=== PATIENT | female | born 1975 | race Caucasian/White ===

== ENCOUNTER 2017-12-02 09:08 | Emergency (ER) | payer MEDICAID ==
[2017-12-02 09:26] VITALS: BP 147/97
[2017-12-02] MEDS ORDERED: LIDOCAINE TOPICAL 4% 50 ML BOTTLE MM STA (10:45)
--- NOTE | 2017-12-02 10:49 | ED Physician Documentation ---
History of Present Illness - Stated complaint Stated Complaint: BILAT EAR PX - Chief complaint Chief Complaint: Heent - Additonal information Additional information: hx from pt 42 female hx CF to ED with maria ines ear pain off and on for a month started with resp infection txed with ab and steroids by her manager relationship has a PMD appt tomorrow but the resp sx caused her anxiety to increase so to ED Review of Systems Constitutional: denies: Fever Ears: reports: Ear pain : denies: Now EGA (denies) PD PAST MEDICAL HISTORY - Past Medical History Past Medical History: Yes - Past Surgical History Past Surgical History: No - Present Medications Home Medications: Ambulatory Orders Medication Instructions Recorded Confirmed Albuterol 1 puffs PO PRN PRN 12/02/17 12/02/17 Calcium Carbonate/Vitamin D3 1 tab PO DAILY 12/02/17 12/02/17 [Calcium 500-Vit D3 200 Tablet] Diphenhydramine HCl [Allergy 1 tab PO DAILY 12/02/17 12/02/17 Medication] Guaifenesin [Tussin] 10 - 15 ml PO DAILY 12/02/17 12/02/17 Ibuprofen 2 - 3 tab PO Q4H 12/02/17 12/02/17 - Allergies Allergies/Adverse Reactions: Allergies Allergy/AdvReac Type Severity Reaction Status Date / Time No Known Drug Allergies Allergy Verified 12/02/17 10:52 - Social History Does the pt smoke?: No Smoking Status: Never smoker Does the pt drink ETOH?: No Does the pt have substance abuse?: No - Immunizations Immunizations are current?: Yes - POLST Patient has POLST: No PD ED PE NORMAL - Vitals Vital signs reviewed: Yes - General General: Alert and oriented X 3 - HEENT HEENT: PERRL. No: Ears normal (R AOM (red bulging dull) L benign) - Cardiac Cardiac: RRR - Respiratory Respiratory: No respiratory distress, Clear bilaterally Results - Vitals Vitals: Vital Signs - 24 hr 12/02/17 09:15 Temperature 36.4 C L Heart Rate 99 Respiratory 22 Rate Blood Pressure 147/97 H O2 Saturation 97 Oxygen O2 Source Room air PD MEDICAL DECISION MAKING - ED course ED course: pt declines decongestatnts 2/2 CF gave lido in ED for acute pain will rx amox Departure - Departure Disposition: 01 Home, Self Care Clinical Impression: Otitis media Qualifiers: Otitis media type: suppurative Chronicity: acute Laterality: right Recurrence: not specified as recurrent Spontaneous tympanic membrane rupture: without spontaneous rupture Qualified Code(s): H66.001 - Acute suppurative otitis media without spontaneous rupture of ear drum, right ear Condition: Good Instructions: ED Otitis Media Acute Adult Comments: Follow up with your PMD tomorrow
== END 2017-12-02 11:17 | disposition home or self-care (01) ==
LOC: ED 09:08
DX: H66.001 Acute suppurative otitis media without spontaneous rupture of ear drum, right ear (principal)
CPT/HCPCS: 99283

== ENCOUNTER 2017-12-03 08:00 | Outpatient (CLI) | payer MEDICAID ==
[2017-12-03 18:23] LABS: THYROID STIMULATING HORMONE 1.52 uIU/mL (0.34-5.60)
[2017-12-03 18:34] LABS: ALBUMIN 3.4 g/dL (3.2-5.5); ALBUMIN/GLOBULIN RATIO 0.9 (1.0-2.2); ALKALINE PHOSPHATASE 73 IU/L (42-121); ALT ALANINE AMINOTRANSFERASE 19 IU/L (10-60); AST ASPARTATE AMINOTRANSFERASE 20 IU/L (10-42); BILIRUBIN,TOTAL 0.6 mg/dL (0.2-1.0); BUN - BLOOD UREA NITROGEN 7 mg/dL (6-20); CALCIUM 9.4 mg/dL (8.5-10.3); CARBON DIOXIDE - CO2 29 mmol/L (21-32); CHLORIDE 100 mmol/L (101-111); CREATININE 0.8 mg/dL (0.4-1.0); GFR - MDRD 78 (>89); GLUCOSE 94 mg/dL (70-100); LDL CHOLESTEROL,DIRECT 138 mg/dL; SODIUM 137 mmol/L (135-145)
== END 2017-12-03 08:01 | disposition home or self-care (01) ==
LOC: LAB.S 08:00
PROVIDERS: ATTEND Nurse Practitioner Family
DX: E66.01 Morbid (severe) obesity due to excess calories (principal); Z13.1 Encounter for screening for diabetes mellitus; E20.9 Hypoparathyroidism, unspecified; Z83.49 Family history of other endocrine, nutritional and metabolic diseases
CPT/HCPCS: 36415; 80053; 83721; 83970; 84443

== ENCOUNTER 2017-12-11 11:54 | Outpatient (CLI) | payer MEDICAID ==
--- NOTE | 2017-12-11 14:25 | XRAY Report ---
THREE VIEW LUMBAR SPINE: 12/11/2017 CLINICAL INDICATION: Chronic low back pain. FINDINGS: AP, lateral, coned down views of the lumbar spine demonstrate mild degenerative disk disease. There is no evidence of compression fracture or subluxation. The bowel gas pattern appears normal. Incidental note is made of a gastric band. IMPRESSION: MILD DEGENERATIVE DISK DISEASE. TD: 12/11/2017 14:24
--- NOTE | 2017-12-11 14:26 | XRAY Report ---
THREE VIEW BILATERAL KNEES: 12/11/2017 CLINICAL INDICATION: Pain. FINDINGS: AP, lateral, sunrise views of the bilateral knees demonstrate severe bilateral osteoarthritis. There is no evidence of acute fracture. No effusion is present on either side. IMPRESSION: SEVERE BILATERAL KNEE OSTEOARTHRITIS. TD: 12/11/2017 14:25
== END 2017-12-11 11:55 | disposition home or self-care (01) ==
LOC: DI.S 11:54
PROVIDERS: ATTEND Nurse Practitioner Family
DX: M17.0 Bilateral primary osteoarthritis of knee (principal); M51.36 Other intervertebral disc degeneration, lumbar region
CPT/HCPCS: 72100

== ENCOUNTER 2017-12-17 08:00 | Outpatient (CLI) | payer MEDICAID ==
[2017-12-17 18:03] LABS: HGB - HEMOGLOBIN 12.9 g/dL (12.0-16.0); MEAN CORPUSCULAR HEMOGLOBIN 29.4 pg (27.0-31.0); MEAN CORPUSCULAR HGB CONC 32.4 g/dL (32.0-36.0); MEAN CORPUSCULAR VOLUME 90.6 fL (81.0-99.0); MEAN PLATELET VOLUME 8.7 fL (7.9-10.8); RED BLOOD COUNT 4.39 10^6/uL (4.20-5.40); RED CELL DISTRIBUTION WIDTH 13.8 % (12.0-15.0); WHITE BLOOD COUNT 11.2 x10^3/uL (4.8-10.8)
[2017-12-17 18:15] LABS: CRP - C-REACTIVE PROTEIN 1.5 mg/dL (0-1.0)
[2017-12-17 18:30] LABS: URIC ACID 6.7 mg/dL (2.6-7.2)
[2017-12-17 19:34] LABS: RHEUMATOID FACTOR NEGATIVE (Negative)
== END 2017-12-17 08:01 ==
LOC: LAB.S 08:00
PROVIDERS: ATTEND Nurse Practitioner Family
DX: M25.50 Pain in unspecified joint (principal); Z82.61 Family history of arthritis
CPT/HCPCS: 36415; 84550; 85651; 86038; 86140; 86200; 86430

== ENCOUNTER 2018-05-17 11:13 | Outpatient (CLI) | payer MEDICAID ==
[2018-05-17 12:20] LABS: COLLECTION TIME,URINE 1440 min; TOTAL VOLUME,URINE 1500 mL
[2018-05-17 12:35] LABS: ALBUMIN 3.8 g/dL (3.2-5.5); CALCIUM 10.3 mg/dL (8.5-10.3); CREATININE 0.7 mg/dL (0.4-1.0); MAGNESIUM 1.7 mg/dL (1.7-2.8); PHOSPHORUS 4.4 mg/dL (2.5-4.6)
== END 2018-05-17 11:14 | disposition home or self-care (01) ==
LOC: LAB 11:13
PROVIDERS: ATTEND Internal Medicine Endocrinology, Diabetes & Metabolism
DX: E20.9 Hypoparathyroidism, unspecified (principal)
CPT/HCPCS: 36415; 81599; 82040; 82306; 82310; 82340; 82523; 82565; 82575; 83735; 83970; 84075; 84100

== ENCOUNTER 2018-06-18 09:34 | Outpatient (CLI) | payer MEDICAID ==
[2018-06-18 12:38] LABS: ALBUMIN 3.7 g/dL (3.2-5.5); MAGNESIUM 1.8 mg/dL (1.7-2.8); PHOSPHORUS 3.7 mg/dL (2.5-4.6)
== END 2018-06-18 09:35 | disposition home or self-care (01) ==
LOC: LAB 09:34
PROVIDERS: ATTEND Internal Medicine Endocrinology, Diabetes & Metabolism
DX: E83.51 Hypocalcemia (principal)
CPT/HCPCS: 36415; 82040; 82310; 83735; 83970; 84100

== ENCOUNTER 2018-06-18 11:30 | Outpatient (CLI) | payer MEDICAID | END 2018-06-18 11:31 | disposition home or self-care (01) | LOC: SC 11:30 | PROVIDERS: ATTEND Internal Medicine Pulmonary Disease | DX: G47.33 Obstructive sleep apnea (adult) (pediatric) (principal) | CPT/HCPCS: 99203; 99212 ==

== ENCOUNTER 2018-07-12 12:32 | Outpatient (CLI) | payer MEDICAID | END 2018-07-12 12:33 | disposition home or self-care (01) | LOC: LAB 12:32 | PROVIDERS: ATTEND Nurse Practitioner Family | DX: M25.50 Pain in unspecified joint (principal) | CPT/HCPCS: 36415; 85651; 86140 ==

== ENCOUNTER 2018-08-01 19:40 | Outpatient (CLI) | payer MEDICAID | END 2018-08-01 19:41 | disposition home or self-care (01) | LOC: SC 19:40 | PROVIDERS: ATTEND Internal Medicine Pulmonary Disease | DX: G47.33 Obstructive sleep apnea (adult) (pediatric) (principal) | CPT/HCPCS: 95810 ==

== ENCOUNTER 2018-09-23 12:44 | Outpatient (CLI) | payer MEDICAID ==
[2018-09-23 13:20] LABS: ALBUMIN 3.8 g/dL (3.2-5.5); CALCIUM 9.1 mg/dL (8.5-10.3); CREATININE 0.7 mg/dL (0.4-1.0); MAGNESIUM 1.9 mg/dL (1.7-2.8); PHOSPHORUS 3.4 mg/dL (2.5-4.6)
== END 2018-09-23 12:45 | disposition home or self-care (01) ==
LOC: LAB 12:44
PROVIDERS: ATTEND Internal Medicine Endocrinology, Diabetes & Metabolism
DX: E83.51 Hypocalcemia (principal)
CPT/HCPCS: 36415; 82040; 82306; 82310; 82565; 83735; 83970; 84100

== ENCOUNTER 2018-09-27 08:00 | Outpatient (CLI) | payer MEDICAID ==
[2018-09-27 18:26] LABS: CREATININE,URINE 72.3 mg/dL
[2018-09-27 20:03] LABS: COLLECTION TIME,URINE 1440 min; TOTAL VOLUME,URINE 2525 mL
== END 2018-09-27 23:59 | disposition home or self-care (01) ==
LOC: LAB.R 08:00
PROVIDERS: ATTEND Internal Medicine Endocrinology, Diabetes & Metabolism
DX: E83.51 Hypocalcemia (principal)
CPT/HCPCS: 82340; 82575

== ENCOUNTER 2018-11-02 19:39 | Outpatient (CLI) | payer MEDICAID | END 2018-11-02 19:40 | disposition home or self-care (01) | LOC: SC 19:39 | PROVIDERS: ATTEND Internal Medicine Pulmonary Disease | DX: G47.33 Obstructive sleep apnea (adult) (pediatric) (principal); G47.61 Periodic limb movement disorder | CPT/HCPCS: 95811 ==

== ENCOUNTER 2018-11-21 09:59 | Outpatient (CLI) | payer MEDICAID | END 2018-11-21 10:00 | disposition home or self-care (01) | LOC: SC 09:59 | PROVIDERS: ATTEND Nurse Practitioner Family | DX: G47.33 Obstructive sleep apnea (adult) (pediatric) (principal) | CPT/HCPCS: 99212; 99215 ==

== ENCOUNTER 2018-12-24 11:09 | Outpatient (CLI) | payer MEDICAID | END 2018-12-24 11:10 | disposition home or self-care (01) | LOC: SC 11:09 | PROVIDERS: ATTEND Nurse Practitioner Family | DX: G47.33 Obstructive sleep apnea (adult) (pediatric) (principal) | CPT/HCPCS: 99212; 99214 ==

== ENCOUNTER 2020-11-12 08:00 | Outpatient (CLI) | payer MEDICAID, OTHER | END 2020-11-12 23:59 | disposition home or self-care (01) | LOC: LAB.R 08:00 | PROVIDERS: ATTEND Physician Assistant | DX: N39.0 Urinary tract infection, site not specified (principal) | CPT/HCPCS: 87086 ==

== ENCOUNTER 2020-12-16 12:57 | Outpatient (CLI) | payer OTHER ==
[2020-12-16 15:05] LABS: BASOPHILS # (AUTO) 0.1 10^3/uL (0.0-0.1); BASOPHILS % (AUTO) 0.7 %; EOSINOPHILS # (AUTO) 0.6 10^3/uL (0.0-0.7); EOSINOPHILS % (AUTO) 5.9 %; HCT - HEMATOCRIT 43.5 % (37.0-47.0); HGB - HEMOGLOBIN 14.3 g/dL (12.0-16.0); LYMPHOCYTES % (AUTO) 20.2 %; MEAN CORPUSCULAR HEMOGLOBIN 29.7 pg (27.0-31.0); MEAN CORPUSCULAR HGB CONC 32.9 g/dL (32.0-36.0); MEAN CORPUSCULAR VOLUME 90.4 fL (81.0-99.0); MEAN PLATELET VOLUME 10.1 fL (7.9-10.8); MONOCYTES # (AUTO) 0.6 10^3/uL (0.0-1.0); MONOCYTES % (AUTO) 5.9 %; NEUTROPHILS # (AUTO) 6.6 10^3/uL (1.5-6.6); NEUTROPHILS % (AUTO) 66.6 %; PLT - PLATELET COUNT 384 10^3/uL (130-450); RED BLOOD COUNT 4.81 10^6/uL (4.20-5.40); RED CELL DISTRIBUTION WIDTH 13.9 % (12.0-15.0); WHITE BLOOD COUNT 9.8 x10^3/uL (4.8-10.8)
[2020-12-16 15:21] LABS: ALBUMIN 3.8 g/dL (3.2-5.5); ALKALINE PHOSPHATASE 66 IU/L (42-121); ALT ALANINE AMINOTRANSFERASE 21 IU/L (10-60); AST ASPARTATE AMINOTRANSFERASE 23 IU/L (10-42); BILIRUBIN,TOTAL 0.6 mg/dL (0.2-1.0); BUN - BLOOD UREA NITROGEN 9 mg/dL (6-20); CALCIUM 9.4 mg/dL (8.5-10.3); CARBON DIOXIDE - CO2 26 mmol/L (21-32); CHLORIDE 102 mmol/L (101-111); CHOL/HDL RATIO 4.3 (<4.4); CHOLESTEROL 221 mg/dL; CREATININE 0.6 mg/dL (0.4-1.0); GFR - MDRD 108 (>89); GLUCOSE 100 mg/dL (70-100); HDL CHOLESTEROL 52 mg/dL; LDL CHOLESTEROL,CALCULATED 139 mg/dL; LDL/HDL RATIO 2.7 (<4.4); POTASSIUM 3.9 mmol/L (3.5-5.0); SODIUM 137 mmol/L (135-145); TOTAL PROTEIN 7.8 g/dL (6.7-8.2); TRIGLYCERIDES 150 mg/dL; VLDL CHOLESTEROL 30 mg/dL
[2020-12-16 15:29] LABS: THYROID STIMULATING HORMONE 2.38 uIU/mL (0.34-5.60)
[2020-12-16 15:30] LABS: CREATININE,URINE 188.5 mg/dL; MICROALBUM/CREATININE RATIO,UR 22.3 ug/mg (<30.0); MICROALBUMIN,URINE 4.2 mg/dL (0-300.0)
[2020-12-16 20:16] LABS: ESTIMATED AVERAGE GLUCOSE 131 mg/dL (70-100); HEMOGLOBIN A1c% 6.2 % (4.27-6.07)
== END 2020-12-16 12:58 | disposition home or self-care (01) ==
LOC: LAB.S 12:57
PROVIDERS: ATTEND Physician Assistant
DX: N39.0 Urinary tract infection, site not specified (principal); R30.0 Dysuria; E20.1 Pseudohypoparathyroidism; E84.19 Cystic fibrosis with other intestinal manifestations; G47.33 Obstructive sleep apnea (adult) (pediatric); E66.01 Morbid (severe) obesity due to excess calories; Z83.49 Family history of other endocrine, nutritional and metabolic diseases
CPT/HCPCS: 36415; 80053; 80061; 82043; 82570; 83036; 83721; 84443; 85025; 87086

== ENCOUNTER 2021-09-03 11:45 | Outpatient (CLI) | payer OTHER | END 2021-09-03 23:59 | disposition home or self-care (01) | LOC: LAB.S 11:45 | PROVIDERS: ATTEND Emergency Medicine | DX: R07.0 Pain in throat (principal) | CPT/HCPCS: 87070 ==

== ENCOUNTER 2021-09-08 08:00 | Outpatient (CLI) | payer OTHER | END 2021-09-08 23:59 | LOC: LAB 08:00 | PROVIDERS: ATTEND Emergency Medicine | DX: R05.9 Cough, unspecified (principal); Z20.822 Contact with and (suspected) exposure to COVID-19 ==

== ENCOUNTER 2022-01-26 12:41 | Outpatient (CLI) | payer OTHER ==
[2022-01-26 14:45] LABS: BASOPHILS # (AUTO) 0.1 10^3/uL (0.0-0.1); BASOPHILS % (AUTO) 0.9 %; EOSINOPHILS # (AUTO) 0.5 10^3/uL (0.0-0.7); EOSINOPHILS % (AUTO) 5.6 %; HCT - HEMATOCRIT 40.8 % (37.0-47.0); HGB - HEMOGLOBIN 13.3 g/dL (12.0-16.0); LYMPHOCYTES # (AUTO) 2.1 10^3/uL (1.5-3.5); LYMPHOCYTES % (AUTO) 23.6 %; MEAN CORPUSCULAR HGB CONC 32.6 g/dL (32.0-36.0); MEAN CORPUSCULAR VOLUME 89.1 fL (81.0-99.0); MEAN PLATELET VOLUME 10.1 fL (7.9-10.8); MONOCYTES # (AUTO) 0.5 10^3/uL (0.0-1.0); MONOCYTES % (AUTO) 5.5 %; NEUTROPHILS # (AUTO) 5.8 10^3/uL (1.5-6.6); NEUTROPHILS % (AUTO) 63.8 %; PLT - PLATELET COUNT 397 10^3/uL (130-450); RED BLOOD COUNT 4.58 10^6/uL (4.20-5.40); WHITE BLOOD COUNT 9.1 x10^3/uL (4.8-10.8)
[2022-01-26 16:25] LABS: THYROID STIMULATING HORMONE 1.98 uIU/mL (0.34-5.60)
[2022-01-26 16:30] LABS: ALBUMIN 3.4 g/dL (3.2-5.5); ALBUMIN/GLOBULIN RATIO 0.9 (1.0-2.2); ALKALINE PHOSPHATASE 64 IU/L (42-121); ALT ALANINE AMINOTRANSFERASE 26 IU/L (10-60); AST ASPARTATE AMINOTRANSFERASE 30 IU/L (10-42); BILIRUBIN,TOTAL 0.5 mg/dL (0.2-1.0); BUN - BLOOD UREA NITROGEN 9 mg/dL (6-20); CALCIUM 9.4 mg/dL (8.5-10.3); CARBON DIOXIDE - CO2 23 mmol/L (21-32); CHLORIDE 99 mmol/L (101-111); CHOL/HDL RATIO 3.9 (<4.4); CHOLESTEROL 196 mg/dL; CREATININE 0.6 mg/dL (0.4-1.0); GFR - MDRD 107 (>89); GLUCOSE 95 mg/dL (70-100); HDL CHOLESTEROL 50 mg/dL; LDL CHOLESTEROL,CALCULATED 124 mg/dL; LDL/HDL RATIO 2.5 (<4.4); MAGNESIUM 1.7 mg/dL (1.7-2.8); POTASSIUM 4.1 mmol/L (3.5-5.0); SODIUM 135 mmol/L (135-145); TRIGLYCERIDES 109 mg/dL; VLDL CHOLESTEROL 22 mg/dL
[2022-01-26 20:56] LABS: ESTIMATED AVERAGE GLUCOSE 137 mg/dL (70-100); HEMOGLOBIN A1c% 6.4 % (4.27-6.07)
[2022-01-27 15:09] LABS: SJOGREN'S ANTI-SS-A <0.2 AI (0.0-0.9); SJOGREN'S ANTI-SS-B <0.2 AI (0.0-0.9)
== END 2022-01-26 12:42 | disposition home or self-care (01) ==
LOC: LAB.S 12:41
PROVIDERS: ATTEND Internal Medicine
DX: E66.9 Obesity, unspecified (principal); Z13.6 Encounter for screening for cardiovascular disorders; Z79.899 Other long term (current) drug therapy; R53.83 Other fatigue; J32.9 Chronic sinusitis, unspecified; E84.9 Cystic fibrosis, unspecified; L40.9 Psoriasis, unspecified; R73.03 Prediabetes; F41.9 Anxiety disorder, unspecified; M51.9 Unspecified thoracic, thoracolumbar and lumbosacral intervertebral disc disorder; H04.123 Dry eye syndrome of bilateral lacrimal glands; K11.7 Disturbances of salivary secretion
CPT/HCPCS: 36415; 80053; 80061; 81599; 82306; 82607; 83036; 83721; 83735; 84443; 84597; 85025; 86235

== ENCOUNTER 2022-06-14 13:11 | Outpatient (CLI) | payer OTHER ==
[2022-06-14 14:05] VITALS: BP 110/80
--- NOTE | 2022-06-14 14:05 | SLEEP CARE CONSULTATION ---
Information from patient questionnaire entered by Tino Parra. I have reviewed and concur with the information entered by Tino Parra. This document represents the service I personally performed and the decisions made by me, Larissa Herrmann ARNP. History of Present Illness Service Date and Time: 06/14/2022 1311 Reason for Visit: sleep apnea on CPAP therapy, Re-establish care Chief Complaint: reports: Other (UPDATE SUPPLIES) Date of Onset: ONGOING SINCE CHILDHOOD Usual bedtime: 1AM Time it takes to fall asleep: 1 HOUR Snores at night: Yes Observed to quit breathing while asleep: Yes Sleeps alone due to snoring: No Number of times waking at night: 3 Reasons for waking at night: reports: Pain, Bathroom Toss, Turn, or Twitch while sleeping: Yes Recalls having dreams: No Usually gets out of bed at: 9AM Feels refreshed in the morning: No Morning headache: No Sleepy or fatigued during the day: Yes Ever fallen asleep while driving: No Takes day naps: Yes (RARELY) Dreams during day naps: No Prior sleep studies: Yes Year and Where: 07/2018 [facility] Type of Sleep Study: Polysomnography Additional HPI information: ILIANA BOOTHE was previously diagnosed to have severe, AHI 44.4, obstructive sleep apnea-hypopnea syndrome and comes in today to re-establish care for CPAP therapy. - Parasomnia Symptoms Ever been unable to move upon waking from sleep: Yes (ONLY A COUPLE OF TIMES) Walks in sleep: Yes ( A CHILD) Talks in sleep: Yes ( A CHILD) Ever acted out dreams in sleep: Yes ( A CHILD) Ever felt weak in the knees when startled or emotional: Yes ( A CHILD) Bothered by creepy, crawly, restless sensations in legs: Yes Problems with memory or concentration: Yes CPAP Compliance Data - Data Reviewed with Patient Average duration of nightly device use: 3 hours 55 minutes 39 secs Compliance rate %: 38.9 (145/180 days used) Current pressure setting (cmH2O): 13.0 Average residual AHI: 4.3 Average large leak: 1 hours 29 mins 29 secs Compliance data discussion: She is using a [employer] that was last updated in 08/2018. She is using a hybrid full face mask. She last changed the mask cushion 6 months. Subjective Missed days of use due to: reports: mask issues, other (anxiety issues with wearing mask) Patient concerns: reports: mask discomfort, air blowing in eyes, mask leak noise, dry mouth, nose, throat. denies: aerophagia, condensation in mask/hose, nasal congestion, epistaxis Observed to snore while using device: No Current pressure setting perceived as: comfortable On therapy, patient: reports: sleeping better, more rested overall, other (she does not wake up as often, stays asleep more solidly). denies: drowsiness while driving Initial [place] Sleepiness Scale score: 4 (06/14/22) Past Medical History Past Medical History: reports: Claustrophobia, Arthritis, Fibromyalgia, Anxiety, Attention deficit, Other (CYSTIC FIBROSIS, DENGENERATIVE DISC DISEASE, SEVERE SLEEP APNEA ) Social History The patient's occupation is a [employer]. Patient is and lives in [place]. Have you smoked in the past 12 months: No Alcohol use: Yes Alcohol amount and frequency: 1-2 GLASSES, 2-3 TIMES A YEAR Caffeine use: Yes Caffeine amount and frequency: 1-2 MUGS DAILY Family History Family history of sleep disordered breathing: Yes Family Hx Sleep Apnea: Mother: Snoring, Sleep apnea - Treated, Father: Snoring Allergies and Home Medications Drug allergies reviewed: Yes (sensitive to sulfa antibiotics) Home medication list reviewed: Yes Allergy and home medication list: Allergies No Known Drug Allergies Allergy (Verified 12/02/17 10:52) Medications: Vyvanse 40 mg Creon (digestive enzyme) Albuterol inhaler, prn Calcium D Allergy pill Review of Systems Weight gain over past 5 years: 30 Weight loss over past 5 years: 20 Cardiovascular: reports: palpitations, leg or foot swelling, have to sleep sitting up Respiratory: reports: shortness of breath, wheeze, sputum production Gastrointestinal: reports: difficulty swallowing, abdominal pain Urinary: reports: incontinence, frequency Neurological: reports: headaches, gait or balance problems Psychiatric: reports: Attention Deficit Hyperactivity, anxiety, claustrophobia Ear/Nose/Throat: reports: nasal congestion, sinus problems, dry mouth/throat, hoarseness, tonsillectomy, wisdom teeth removed Endocrine: reports: sluggishness, too hot or cold, excessive thirst, increased urination Musculoskeletal: reports: joint pain, back pain, muscle pain or cramping, mobility problems Immunologic: reports: sneezing, itching, allergies to food or environment (DUST MITES ) Physical Exam Vital signs obtained and entered by: DILLON GARCIA Blood Pressure: 110/80 (LEFT WRIST ) Cuff size: wrist Heart Rate: 119 O2 Saturation: 98 Height: 5 ft 4 in Weight: 350 lb Body Mass Index: 60.0 BMI Classification: Morbidly Obese Neck circumference: 20 (INCHES ) Impression and Plan 1. Obstructive Sleep Apnea-Hypopnea Syndrome, severe, with poor treatment compliance and good apnea control. On CPAP therapy, the patient has better sleep quality and is more rested overall. Patient has anxiety issues and can only wear the CPAP mask for so long. She does try to put it on every night. She just needs to increase time in the mask by even just a few minutes to reach compliance. Patient needs supplies and would like to try mask that did not put pressures on her orthodox to the cheek area. I showed her a picture of an Liss View by [employer] and she thought that this would work for her because she has used one similar to this in the past. I will also adjust her pressure to 14 cm H2O to reduce residual AHI. I will have her follow-up in 1 to 2 months to recheck compliance and make sure pressure changes comfortable still. Patient's apnea severity and rationale for treatment to reduce apnea, improve sleep quality and reduce cardiovascular and cerebrovascular events was reviewed. I also reviewed the benefit of consistent device use of CPAP for attention deficit, fibromyalgia, depression and anxiety. 2. Obesity, unspecified. Currently patients BMI is 60.0. Obesity increases the risk of apnea, CPAP pressure requirements and overall health risks especially cardiovascular and diabetes. Thus patient is advised to and is trying to lose weight. * Change auto CPAP pressure to 14 cmH2O * Mask change to Liss View full face mask * Update supplies * Notify me if snoring with mask or feeling that the pressure is too much or too little * Attempt to lose weight * Call this office if any problems using CPAP * Return for follow up in 1-2 months, or sooner if concerns arise Counseling Topics: Spare mask, Weight loss health impact Visit Type: In Office Time Spent with Patient (minutes): 33 Provider Statement: I spent 100% of the Face to Face Visit with the patient with greater than 50% spent counseling the patient and coordination of care.
== END 2022-06-14 13:12 | disposition home or self-care (01) ==
LOC: SC 13:11
PROVIDERS: ATTEND Nurse Practitioner Family
DX: G47.33 Obstructive sleep apnea (adult) (pediatric) (principal); E66.01 Morbid (severe) obesity due to excess calories; Z68.44 Body mass index [BMI] 60.0-69.9, adult
CPT/HCPCS: 99203; 99212

== ENCOUNTER 2022-10-27 14:42 | Outpatient (CLI) | payer OTHER | END 2022-10-27 23:59 | disposition short-term general hospital (02) | LOC: EMS 14:42 | DX: R07.89 Other chest pain (principal); M25.562 Pain in left knee; M79.602 Pain in left arm; M79.605 Pain in left leg; V53.6XXA Passenger in pick-up truck or van injured in collision with car, pick-up truck or van in traffic accident, initial encounter; Y92.413 State road as the place of occurrence of the external cause | CPT/HCPCS: A0425; A0429 ==

== ENCOUNTER 2023-01-15 13:07 | Outpatient (CLI) | payer OTHER ==
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
== END 2023-01-15 13:08 | disposition home or self-care (01) ==
LOC: DI.S 13:07
PROVIDERS: ATTEND Internal Medicine
DX: Z12.31 Encounter for screening mammogram for malignant neoplasm of breast (principal); R92.8 Other abnormal and inconclusive findings on diagnostic imaging of breast; Z80.3 Family history of malignant neoplasm of breast

== ENCOUNTER 2023-02-13 12:52 | Outpatient (CLI) | payer OTHER ==
--- NOTE | 2023-02-14 10:03 | Mammography Report ---
UNILATERAL LEFT DIGITAL DIAGNOSTIC MAMMOGRAM 3D/2D WITH SPOT COMPRESSION: 02/13/2023 CLINICAL: Patient returns today to evaluate an asymmetry in the left breast. Comparison is made to exam dated: 01/15/2023 mammogram - [facility]. There are scattered areas of fibroglandular density in the left breast (category b / 25%-50% glandula r tissue). There is a possible oval hematoma in the left breast at 2 o'clock anterior depth. No other significant masses or calcifications are seen in the breast. IMPRESSION: INCOMPLETE: NEEDS ADDITIONAL IMAGING EVALUATION The possible hematoma in the left breast is indeterminate. A targeted ultrasound is recommended and will immediately follow. Based on Tyrer-Cuzick model (a risk assessment model), the patient's lifetime risk is 20.5% and her 1 0 year risk is 4.9%. If a patient has an elevated risk, a more comprehensive evaluation should be con sidered and/or a referral to a genetic counselor. The [place] [employer], [employer] diology, and NCCN Guidelines advise the consideration of Breast MRI as an adjunct to screening mammog romulo in patients whose "Lifetime risk to develop breast cancer" is 20% or higher. This exam was interpreted at Station ID: [id number]. NOTE: For mammograms, a report in lay terms will be sent to the patient. Approximately 15% of breast malignancies will not be visualized mammographically. In the management of a palpable breast mass, a negative mammogram must not discourage biopsy of a clinically suspicious lesion. Electronically Signed By: Oleksandr Ugalde M.D. slc/:02/13/2023 13:35:58 ACR BI-RADS Category 0: Incomplete 3340F PARENCHYMAL PATTERN: (A) - The breast(s) demonstrate(s) scattered fibroglandular densities. BI-RADS CATEGORY: (0) - 0 Ultrasound [id number] Immediate follow-up LATERALITY: (B)
--- NOTE | 2023-02-14 10:03 | Ultrasound Report ---
LIMITED ULTRASOUND OF LEFT BREAST: 02/13/2023 CLINICAL: Patient returns today to evaluate a focal asymmetry in the left breast. Comparison is made to exams dated: 01/15/2023 mammogram and 02/13/2023 mammogram - [facility]. Color flow and real-time ultrasound of the left breast 2-4 o'clock region were performed. Jaquez scal e images of the real-time examination were reviewed. There is a benign 4.1 cm x 3.6 cm x 2.3 cm oval fluid collection in the left breast at 3 o'clock ante rior depth 2 cm from the nipple. This oval fluid collection is isoechoic. This correlates with mamm ography findings and area of clinical concern. Color flow imaging demonstrates that there is no vasc ularity present. IMPRESSION: BENIGN There is no sonographic evidence of malignancy. The 4.1 cm fluid collection in the left breast is consistent with a hematoma and is benign. Exam findings were conveyed to the patient. Patient is advised to monitor for significant change. Cli nical follow-up as needed. A follow-up ultrasound in 6 months could be considered. A 1 year screening mammogram is recommended. This exam was interpreted at Station ID: [id number]. Electronically Signed By: Oleksandr Ugalde M.D. slc/:02/13/2023 14:04:55 Ultrasound BI-RADS: 2 Benign BI-RADS CATEGORY: (2) - 2 Mammogram [id number] 1 year screening LATERALITY: (B)
== END 2023-02-13 12:53 | disposition home or self-care (01) ==
LOC: DI 12:52
PROVIDERS: ATTEND Internal Medicine
DX: R92.8 Other abnormal and inconclusive findings on diagnostic imaging of breast (principal)

== ENCOUNTER 2023-06-27 14:53 | Outpatient (CLI) | payer OTHER, MEDICARE ==
--- NOTE | 2023-06-27 15:33 | Sleep Patient Instructions ---
Sleep Center Visit Summary - Patient Visit Information Reason for Visit: Annual Visit - Patient Instructions Additional Instructions: You will continue with CPAP therapy with pressure set at 14 cmH2O. A supply prescription will be updated with your DME. I have added to change your supply company and a mask refitting for a new mask. We encourage you to continue to try to lose weight. Please follow up with the sleep care office in 1 year. - Clinic Information Contact: [facility] [address] [place] [address] [email or web address] T: [phone]
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
[2023-06-27 15:44] VITALS: BP 144/98; O2SAT 98
== END 2023-06-27 14:54 | disposition home or self-care (01) ==
LOC: SC 14:53
PROVIDERS: ATTEND Nurse Practitioner Family
DX: G47.33 Obstructive sleep apnea (adult) (pediatric) (principal); E66.01 Morbid (severe) obesity due to excess calories; Z68.43 Body mass index [BMI] 50.0-59.9, adult
CPT/HCPCS: 99212; 99213

== ENCOUNTER 2024-03-17 12:00 | Outpatient (CLI) | payer SELFPAY ==
--- NOTE | 2024-03-17 14:44 | CT Report ---
PROCEDURE: CT heart coronary calcium scoring without contrast TECHNIQUE: MDCT non-contrast cardiac gated images were obtained from the kwesi through the inferior margin of the heart. Calcium score was obtained by post-processing with external software. Automated exposure control was used to reduce patient radiation dose. INDICATION: CAD screening, low or intermediate risk COMPARISON: No relevant comparisons available at time of dictation. FINDINGS: Image quality: Excellent Agatston method: Total calcium score: 6.6 L main: 5.4 LAD: 0 LCX: 0 RCA: 1.2 Heart findings: Mitral annular calcifications: No significant calcifications. Aortic valve: No significant valvular calcifications. Chambers: No significant enlargement on this non-dynamic study. Pericardium: No effusion. Other findings (note the chest is incompletely imaged on this limited non-contrast study): Lungs and pleura: Bronchiectasis in the medial right lower lobe, nonspecific. Mediastinum: No pathologic lymphadenopathy. Upper abdomen: Partially seen, unremarkable. Bones: No acute or suspicious abnormality. IMPRESSION: Coronary calcium scores as above. This is significantly abnormal for age. Incidentals: None significant. Coronary artery calcium scores have been identified as an independent risk factor for future acute co ronary syndromes and correlate with the quantity of coronary atherosclerotic plaque. However, they do not correlate directly with the degree of stenosis. A low score does not exclude a significant coron kun artery stenosis. Risk of future coronary events should be assessed with individual patient risk factors and medical hi story. Consider correlation with risk percentiles using the CHICAS (Multi-Ethnic Study of Atheroscleros is) calculator. CAC-DRS Categories: A0: 0, very low risk, consider repeat coronary calcium study every 3-7 years for surveillance. A1: 1-99, mildly increased risk, consider moderate-intensity statin A2: 100-299: moderately increased risk, consider moderate to high-intensity statin + ASA 81mg A3: >300: moderately to severely increased risk, consider high-intensity statin + ASA 81mg Reviewed by: Nolan Salcido MD on 03/17/2024 2:43 PM PDT Approved by: Nolan Salcido MD on 03/17/2024 2:43 PM PDT Station ID: [id number]
== END 2024-03-17 12:01 | disposition home or self-care (01) ==
LOC: DI 12:00
PROVIDERS: ATTEND Internal Medicine
DX: Z13.6 Encounter for screening for cardiovascular disorders (principal); Z82.49 Family history of ischemic heart disease and other diseases of the circulatory system

== ENCOUNTER 2024-03-31 14:53 | Emergency (ER) | payer MEDICARE, OTHER ==
[2024-03-31 15:21] LABS: BASOPHILS # (AUTO) 0.1 10^3/uL (0.0-0.1); BASOPHILS % (AUTO) 0.8 %; EOSINOPHILS # (AUTO) 0.4 10^3/uL (0.0-0.7); EOSINOPHILS % (AUTO) 4.1 %; HCT - HEMATOCRIT 41.5 % (37.0-47.0); HGB - HEMOGLOBIN 13.1 g/dL (12.0-16.0); LYMPHOCYTES # (AUTO) 2.1 10^3/uL (1.5-3.5); LYMPHOCYTES % (AUTO) 19.7 %; MEAN CORPUSCULAR HEMOGLOBIN 27.9 pg (27.0-31.0); MEAN CORPUSCULAR HGB CONC 31.6 g/dL (32.0-36.0); MEAN CORPUSCULAR VOLUME 88.5 fL (81.0-99.0); MEAN PLATELET VOLUME 9.7 fL (7.9-10.8); MONOCYTES # (AUTO) 0.7 10^3/uL (0.0-1.0); MONOCYTES % (AUTO) 6.7 %; NEUTROPHILS % (AUTO) 67.9 %; PLT - PLATELET COUNT 418 10^3/uL (130-450); RED BLOOD COUNT 4.69 10^6/uL (4.20-5.40); RED CELL DISTRIBUTION WIDTH 14.7 % (12.0-15.0); WHITE BLOOD COUNT 10.4 x10^3/uL (4.8-10.8)
[2024-03-31 15:39] LABS: ALBUMIN/GLOBULIN RATIO 1.1 (1.0-2.2); ALKALINE PHOSPHATASE 60 IU/L (42-121); ALT ALANINE AMINOTRANSFERASE 15 IU/L (10-60); AST ASPARTATE AMINOTRANSFERASE 12 IU/L (10-42); BILIRUBIN,TOTAL 0.3 mg/dL (0.2-1.0); BUN - BLOOD UREA NITROGEN 10 mg/dL (6-20); CALCIUM 9.9 mg/dL (8.5-10.3); CARBON DIOXIDE - CO2 27 mmol/L (21-32); CHLORIDE 104 mmol/L (101-111); CREATININE 0.7 mg/dL (0.6-1.3); GFR - MDRD 89 (>89); GLUCOSE 121 mg/dL (74-104); LIPASE 31 U/L (11-82); POTASSIUM 4.1 mmol/L (3.5-4.5); SODIUM 138 mmol/L (135-145); TOTAL PROTEIN 7.7 g/dL (6.4-8.9)
[2024-03-31 15:40] LABS: TROPONIN I HIGH SENSITIVITY < 2.3 ng/L (2.3-14.8)
--- NOTE | 2024-03-31 15:42 | XRAY Report ---
PROCEDURE: Chest 1V INDICATIONS: Chest pain TECHNIQUE: One view of the chest was acquired. COMPARISON: None. FINDINGS: Surgical changes and devices: None. Lungs and pleura: No pleural effusions or pneumothorax. Lungs are clear. Mediastinum: Mediastinal contours appear normal. Heart size is normal. Bones and chest wall: No suspicious bony lesions. Overlying soft tissues appear unremarkable. IMPRESSION: No acute cardiopulmonary process. Reviewed by: Nolan Salcido MD on 03/31/2024 2:41 PM AKDT Approved by: Nolan Salcido MD on 03/31/2024 2:41 PM AKDT Station ID: [id number]
--- NOTE | 2024-03-31 18:18 | ED Physician Documentation ---
History of Present Illness - Stated complaint Stated Complaint: CHEST TIGHTNESS,HIGH HR - Chief complaint Chief Complaint: Cardiac - History obtained from History obtained from: Patient - History of Present Illness Pain level max: 3 Pain level now: 3 - Additonal information Additional information: Patient is a 48-year-old female who states that she has had intermittent palpitations over the past year, she states they have been increasing in frequency over the past month. She states that she had a cardiac CT ap proximately one week ago. This did not show any significant cardiac calcium deposits. She states that she is awaiting a stress test. She states that she has not had a Holter monitor or Zio patch. She states occasionally she will feel her heart race. She states that her heart rate is often 90 to 100, often over 100 at home. No chest pain. No pleuritic chest pain. No young cardiac . She tried to see her PCP for her palpitations, but was sent here instead. Currently asymptomatic. Nothing seems to bring on her symptoms. History of cystic fibrosis, no dyspnea. Review of Systems Constitutional: denies: Fever, Chills Nose: denies: Rhinorrhea / runny nose, Congestion Skin: denies: Rash Musculoskeletal: denies: Neck pain, Back pain Neurologic: denies: Headache PD PAST MEDICAL HISTORY - Past Medical History Past Medical History: Yes Respiratory: Cystic fibrosis, Sleep apnea Musculoskeletal: Rheumatoid arthritis Derm: Psoriasis - Past Surgical History Past Surgical History: No HEENT: Tonsil/Adenoidectomy - Present Medications Home Medications: Ambulatory Orders Medication Instructions Recorded Confirmed Albuterol 1 puffs PO PRN PRN 12/02/17 06/27/23 Calcium Carbonate/Vitamin D3 1 tab PO DAILY 12/02/17 06/27/23 [Calcium 500-Vit D3 200 Tablet] Ibuprofen 2 - 3 tab PO Q4H 12/02/17 06/27/23 diphenhydrAMINE HCL [Allergy 1 tab PO DAILY 12/02/17 06/27/23 Medication] Estradiol Cypionate See Rx Instructions .ROUTE .COMPLEX 06/27/23 06/27/23 [Depo-Estradiol] Progesterone,Micronized See Rx Instructions .ROUTE .COMPLEX 06/27/23 06/27/23 [Progesterone Micronized] - Allergies Allergies/Adverse Reactions: Allergies Allergy/AdvReac Type Severity Reaction Status Date / Time No Known Drug Allergies Allergy Verified 03/31/24 15:01 - Social History Does the pt smoke?: No Smoking Status: Never smoker Does the pt drink ETOH?: No Does the pt have substance abuse?: No - Immunizations Immunizations are current?: Yes - POLST Patient has POLST: No PD ED PE NORMAL - Vitals Vital signs reviewed: Yes - General General: Alert and oriented X 3, No acute distress - HEENT HEENT: PERRL, Moist mucous membranes - Neck Neck: Supple, no meningeal sign - Cardiac Cardiac: RRR, No murmur, Strong equal pulses - Respiratory Respiratory: No respiratory distress, Clear bilaterally - Abdomen Abdomen: Soft, Non tender, Non distended - Derm Derm: Warm and dry - Extremities Extremities: No edema, No calf tenderness / cord - Neuro Neuro: Alert and oriented X 3 - Psych Psych: Normal mood, Normal affect Results - Vitals Vitals: Vital Signs - 24 hr 03/31/24 03/31/24 15:02 18:22 Temperature 36.6 C 36.5 C Heart Rate 110 H 90 Respiratory 16 18 Rate Blood Pressure 164/92 H 140/90 H O2 Saturation 99 100 Oxygen O2 Source Room air - EKG (time done) 1510 EKG releavant findings:: EKG personally interpreted by author of this note. Relevant findings are: Rate: Rate (enter#) (101) Rhythm: Sinus tachycardia [place]: Normal Intervals: Normal ID QRS: LVH Ischemia: Normal ST segments - Labs Labs: Laboratory Tests 03/31/24 03/31/24 15:15 15:15 WBC 10.4 RBC 4.69 Hgb 13.1 Hct 41.5 MCV 88.5 MCH 27.9 MCHC 31.6 L RDW 14.7 Plt Count 418 MPV 9.7 Neut # (Auto) 7.0 H Lymph # (Auto) 2.1 [place] # (Auto) 0.7 Eos # (Auto) 0.4 Baso # (Auto) 0.1 Absolute Nucleated RBC 0.00 Nucleated RBC % 0.0 Sodium 138 Potassium 4.1 Chloride 104 Carbon Dioxide 27 Anion Gap 7.0 BUN 10 Creatinine 0.7 Estimated GFR (MDRD) 89 Glucose 121 H Calcium 9.9 Total Bilirubin 0.3 AST 12 ALT 15 Alkaline Phosphatase 60 Troponin I High Sens < 2.3 L Total Protein 7.7 Albumin 4.0 Globulin 3.7 Albumin/Globulin Ratio 1.1 Lipase 31 - Rads (name of study) cxr Relevant Findings:: Final report received, See rad report PD Medical Decision Making - ED course Complexity details: reviewed results, re-evaluated patient, considered differential, d/w patient ED course: Patient with ongoing palpitations. No acute abnormalities on laboratory testing, EKG, chest x-ray here. No evidence of acute coronary syndrome. No evidence of heart attack. No evidence of pulmonary embolism. No evidence of aortic dissection. Recommend that she follow up with her doctor for further work of her palpitations. Possible that she has paroxysmal, atrial fibrillation, causing her racing heartbeat. Her pulse rate is often elevated at rest in her chart, often over 100 bpm. No symptoms of a PE at this time. Patient counseled regarding signs and symptoms for which I believe an urgent re-evaluation would be necessary. Patient with good understanding of and agreement to plan and is co mfortable going home at this time. This document was made in part using voice recognition software. While efforts are made to proofread this document, sound alike and grammatical errors may occur. Departure - Departure Disposition: 01 Home, Self Care Clinical Impression: Palpitations Condition: Good Instructions: ED Palpitations Follow-Up: Lula Santos MD [Primary Care Provider] - Tomorrow Comments: The cause of your palpitations is unclear, it is recommended that you have a Holter monitor or Zio patch placed to evaluate for any arrhythmias. Please follow-up with your doctor for further care. Please return if you worsen. Your testing today does not show any acute abnormalities. Forms: PCP List Discharge Date/Time: 03/31/24 18:22
[2024-03-31 18:25] VITALS: BP 140/90; O2SAT 100
== END 2024-03-31 18:22 | disposition home or self-care (01) ==
LOC: ED 14:53
DX: R00.2 Palpitations (principal); E84.9 Cystic fibrosis, unspecified; M06.9 Rheumatoid arthritis, unspecified
CPT/HCPCS: 36415; 80053; 83690; 84484; 85025; 93005; 99283; 99284